=== PATIENT | female | born 1945 | race Caucasian/White ===

== ENCOUNTER → 2016-10-31 | Outpatient (CLI) | payer OTHER ==
--- NOTE | 2016-11-01 02:08 | HKNOTE ---
DATE OF SERVICE: 10/31/2016 Patient comes in with her mother, who has a lower back and sciatica problem. The patient meanwhile requests that I take a look at her knees again. I last saw her on 08/28 for her knees. Note that Jigar Allen was contacted after that and he stated that the diagnosis for this lady was "functional. " the knees do not swell, lock or give way. PHYSICAL EXAMINATION: Both knees have full range of motion without any pain. IMAGING: Plain x-rays of her knees were reviewed. These do not show any pathology. Patient given reassurance. She states that Dr. Allen has "given me the diagnosis, but I do not r emember it." She will be seen again as necessary for further evaluation and treatment. Dictated By: GOVIND MURPHY/KATIA Conf#: [id number] DID#: [id number]
== END | disposition home or self-care (01) ==
LOC: HKI 15:01
DX: M54.40 Lumbago with sciatica, unspecified side (principal)
CPT/HCPCS: G0463

== ENCOUNTER → 2017-05-09 | Outpatient (CLI) | payer OTHER ==
--- NOTE | 2017-05-09 16:20 | RADRPT ---
PROCEDURE: XR Knees. CLINICAL INDICATION: Bilateral knee pain. TECHNIQUE: Total of six views. Frontal, oblique, and lateral views of both knees. COMPARISON: 10/19/2015. FINDINGS: There is no fracture or dislocation. The soft tissues are normal. There are mild degenerative changes of both knees with small osteophytes noted arising from the join t margins. There is no lytic or blastic lesion. There is no radiopaque foreign body. IMPRESSION: 1. Mild degenerative changes of both knees. 2. Otherwise unremarkable study. RPTAT: QQ .Chandrakant Wheeler MD, MD Date Time Electronically viewed and signed by .Chandrakant Wheeler MD, MD on 05/09/2017 16:20 .R/
--- NOTE | 2017-05-10 07:34 | HKNOTE ---
DATE OF SERVICE: 05/09/2017 MAIN COMPLAINT: Pain in both knees for the past 4 years. HISTORY OF MAIN COMPLAINT: Pain has been worse in the right knee. There has not been any history of injury to the knees. She was seen by me in October 2016. I have previously discussed her case with Dr. Allen, who feels that the problem may be "functional". She continues to have pain in both knees as noted above. The right knee has locked once or twice in the past year. She was also hospitalized at some point in the last year after "she was not able to move her feet and she felt as if she was glued to the floor. She was hospitalized for evaluation. She was in the hospital for about 35 hours, as she was not given any diagnosis as to what the problem was. She subsequently saw a neurologist. He after full evaluation declared that "problem was not neurological". The main complaint is in the right knee in the posterior aspect and medial aspect. It is difficult for her to get up from a chair or getting up from the ground. The right knee feels unstable going down stairs every day. The left knee feels unstable perhaps every other day. PHYSICAL EXAMINATION: GENERAL: The patient does not appear to be in any acute distress. She is a david 71-year-old female. VITAL SIGNS: Height 5 foot 7 inches, weight 170 pounds, blood pressure 135/70, and temperature 98.3. EXTREMITIES: Both knees show pain on forced extension and both have a 1plus effusion. The knees otherwise clinically normal except for a small popliteal cyst in the posterior aspect of the right knee. IMAGING: Imaging of both knees obtained today show that there has been some generalized narrowing of the joint spaces of both knees, but there is mild narrowing of the medial and lateral compartments in both knees. DISCUSSION AND MANAGEMENT: The patient's symptoms are as unusual today as they were when I last saw her. She has not had MRI scans of her knees. It is time to get an MRI so we can pursue the pathology as fast as we can. She will be seen again a week after she has had MRI scans of her knees. Dictated By: Kevin Aviles MD /dominic/afua /Document#: [id number]
== END | disposition home or self-care (01) ==
LOC: HKI 13:43
DX: M25.561 Pain in right knee (principal); M25.562 Pain in left knee
CPT/HCPCS: 73562; G0463

== ENCOUNTER → 2017-05-16 | Outpatient (CLI) | payer OTHER ==
--- NOTE | 2017-05-16 23:01 | HKNOTE ---
DATE OF SERVICE: 05/16/2017 IMAGING: The patient comes in with the MRI scan of her left knee for review. The MRI obtained on 05/11/2017 and is reported by Dr. David Salazar as showing focal advanced chondral loss with subchondral cyst change and bone marrow edema affecting the far posterior aspect of the medial femoral condyle. Signal alteration suspicious for subtle horizontal tearing affecting the posterior horn and medial meniscus along the free edge. Joint effusion. PHYSICAL EXAMINATION: Small joint effusion. 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 No discrete osteochondral fractures is present. The patient continues to have fairly significant symptoms in her knee, especially the instability of the knee. MANAGEMENT: The patient is advised that the MRI scan is 6 percent chance of being wrong and I recommended I will give her a cortisone injection to see how much of the pain goes away. If she gets prolonged relief from her pain, although . The patient advised if she gets prolonged relief from the cortisone injection, then we will just continue with conservative cortisone injections until the relief no longer exists. She will call to have an operative arthroscopy on the knee if the cortisone does not give her sufficient relief. Dictated By: Kevin Aviles MD /dominic/kamran /Document#: [id number]
== END | disposition home or self-care (01) ==
LOC: HKI 15:43
DX: M25.462 Effusion, left knee (principal); M25.862 Other specified joint disorders, left knee
CPT/HCPCS: 20610

== ENCOUNTER → 2017-08-15 | Outpatient (CLI) | payer OTHER ==
--- NOTE | 2017-08-15 19:57 | HKNOTE ---
DATE OF SERVICE: 08/15/2017 MAIN COMPLAINT: Pain in both knees. 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 She has had cortisone injections into her knee which have given her good relief. She reque sts repeat cortisone injection. She does not currently have any other symptoms of an internal derangement of the knee. MANAGEMENT: Under sterile conditions, given injection of 2 mL of Kenalog and 6 mL of 2% lidocaine i nto the knee and she will be seen again as necessary. Dictated By: GOVIND MURPHY/KATIA Conf#: [id number] DID#: [id number]
== END | disposition home or self-care (01) ==
LOC: HKI 10:27
DX: M23.92 Unspecified internal derangement of left knee (principal); M23.91 Unspecified internal derangement of right knee
CPT/HCPCS: 20610; G0463

== ENCOUNTER → 2017-12-13 | Outpatient (CLI) | END | disposition home or self-care (01) ==

== ENCOUNTER → 2018-01-02 | Outpatient (CLI) | END | disposition home or self-care (01) ==

== ENCOUNTER → 2018-03-04 | Outpatient (CLI) | END | disposition home or self-care (01) ==

== ENCOUNTER → 2018-03-18 | Outpatient (CLI) | END | disposition home or self-care (01) ==

== ENCOUNTER → 2018-03-21 | Outpatient (CLI) | END | disposition home or self-care (01) ==

== ENCOUNTER → 2018-04-18 | Outpatient (CLI) | END | disposition home or self-care (01) ==

== ENCOUNTER → 2018-05-06 | Outpatient (CLI) | END | disposition home or self-care (01) ==

== ENCOUNTER → 2018-08-05 | Outpatient (CLI) | END | disposition home or self-care (01) ==